=== PATIENT | male | born 2000 | race African-American/Black ===

== ENCOUNTER 2021-02-22 00:42 | Emergency (ER) | payer SELFPAY ==
[2021-02-22 00:46] VITALS: BP 137/85; PULSE 91; RESP 16; TEMP 36.1; O2SAT 100
--- NOTE | 2021-02-22 00:58 | ED.GENADULT ---
HPI - General Adult General Chief complaint: Alcohol Stated complaint: I got alcohol poisoning. Time Seen by Provider: 02/22/21 00:44 Source: RN notes reviewed History of Present Illness HPI narrative: Patient presents to emergency department from home for nausea vomiting. Patient states that last night he was drinking a large amount of alcohol he states he woke up this morning with nausea vomiting and has been vomiting throughout the day today. States he been unable to keep anything down. He states is associated with abdominal cramping throughout the abdomen he denies any fevers or chills, chest pain, shortness of breath or any other symptoms Related Data Allergies Allergy/AdvReac Type Severity Reaction Status Date / Time No Known Allergies Allergy Verified 02/22/21 01:19 Review of Systems Review of Systems: Gen.: Denies fevers or chills ENT: Denies congestion Respiratory: Denies shortness of breath or cough CV: Denies chest pain or palpitations GI: See HPI Musculoskeletal: Denies back pain or muscle pain Neuro: Denies numbness, tingling, weakness or focal weakness Skin: Denies rash Except as documented, all other systems reviewed and negative [facility] Past Medical History Medical History (Updated 02/22/21 @ 02:53 by Armond Yeager DO) Patient denies significant medical history Social History Social History (Updated 02/22/21 @ 00:59 by Armond Yeager DO) Smoking status: Current every day smoker Exam Narrative: APPEARANCE: No acute distress, nontoxic, resting in bed HEENT: Normocephalic, atraumatic, oral mucosa dry RESPIRATORY: No respiratory distress, clear to auscultation bilaterally with no rhonchi wheezing or rales CARDIOVASCULAR: RRR s murmur ABDOMINAL: Soft nondistended diffusely tender palpation no rebound or guarding MUSCULOSKELETAl: Moves all extremities. No clubbing, cyanosis or edema. NEURO: Awake and alert. Following commands, speech normal, no focal deficits SKIN:: Warm, dry. Normal Color PSYCHIATRIC: Normal affect/mood Course Course Emergency Course: Patient given 2 L IV fluid in the ED states he is feeling much better. Patient able to eat and drink in ED with no emesis Patient states that they are feeling much better at this time. States abdominal pain has resolved. Repeat abdominal exam shows the patient's abdomen to be soft and nontender. Discussed with patient results of workup and diagnosis. Discussed need for follow-up with primary care physician, reasons to return to the emergency department in proper use of medication. Patient understands and agrees to current treatment plan Vital Signs Vital signs: Vital Signs Temperature 97.0 F L 02/22/21 00:46 Pulse Rate 91 02/22/21 00:46 Respiratory Rate 16 02/22/21 00:46 Blood Pressure 137/85 02/22/21 00:46 Pulse Oximetry 100 02/22/21 00:46 Temperature 97.1 F L 02/22/21 02:29 Pulse Rate 67 02/22/21 02:29 Respiratory Rate 18 02/22/21 02:29 Blood Pressure 137/85 02/22/21 00:46 Pulse Oximetry 99 02/22/21 02:29 Medical Decision Making MDM Narrative Medical decision making narrative: Patient's abdomen is soft without significant pain or signs of surgical abdomen on serial exams. Lab and x-ray evaluations are reviewed and patient is felt to be a reasonable candidate for outpatient management. Patient was instructed as to limitations of x-ray and laboratory evaluation and encouraged to return to ED or primary physician for repeat exam in 12 hours if continued or worsening pain Vital Signs Vital Signs: Vital Signs Temperature 97.0 F L 02/22/21 00:46 Pulse Rate 91 02/22/21 00:46 Respiratory Rate 16 02/22/21 00:46 Blood Pressure 137/85 02/22/21 00:46 Pulse Oximetry 100 02/22/21 00:46 Temperature 97.1 F L 02/22/21 02:29 Pulse Rate 67 02/22/21 02:29 Respiratory Rate 18 02/22/21 02:29 Blood Pressure 137/85 02/22/21 00:46 Pulse Oximetry 99 02/22/21 02:29 Lab Data Result d
[2021-02-22 01:16] LABS: Basophils Percent Auto 0.1 % (0.2-1.2); Hemoglobin 14.1 g/dL (14.0-18.0); Immature Granulocyte Absolute 0.05 K/mm3 (0.00-0.031); Immature Granulocyte Percent A 0.3 % (0-0.5); Lymphocytes Absolute Auto 1.15 K/mm3 (0.9-3.2); Lymphocytes Percent Auto 7.4 % (18.3-44.2); Mean Corpuscular Hemoglobin 25.3 pg (26-34); Mean Corpuscular Volume 78.9 fl (80-100); Mean Platelet Volume 11.1 fl (7.4-10.4); Monocytes Absolute Auto 0.7 K/mm3 (0.1-0.6); Monocytes Percent Auto 4.7 % (2.6-8.5); Neutrophils Absolute Auto 13.6 K/mm3 (1.3-6.7); Neutrophils Percent Auto 87.5 % (45.5-73.1); Platelet Count Result 268 k/mm3 (150-375); Red Blood Count 5.58 M/mm3 (4.6-6.20); Red Cell Distribution Width 15.3 % (11.5-14.5); White Blood Count 15.6 K/mm3 (4.5-10.0)
[2021-02-22] MEDS: ONDANSETRON INJ 4 MG/2 ML VIAL IV PUSH (01:19)
[2021-02-22] MEDS: FAMOTIDINE 20 MG/2 ML VIAL IV PUSH (01:19)
[2021-02-22] MEDS: SODIUM CHLORIDE 0.9% IV 1,000 ML 999 ML IV CONT ×2 (01:19)
[2021-02-22 01:26] LABS: Add Urine Microscopic? YES; Appearance Urine Clear (Clear); Bilirubin Urine Negative (Negative); Blood Urine Negative (Negative); Color Urine Yellow (Yellow); Glucose Urine UA Negative (Negative); Ketones Urine 2+ mg/dL (Negative); Leukocyte Esterase Ur Negative LEU/UL (Negative); Mucus Urine Rare /lpf; Nitrate Urine Negative (Negative); Protein Urine 2+ mg/dL (Negative); RBC Urine 0-2 /hpf (0-2); Squamous Epithelial Cell Urine Rare /hpf (Few); Urobilinogen Urine Negative mg/dL (<2.0); WBC Urine 0-3 /hpf
[2021-02-22 01:31] LABS: Specific Grav Ur 1.033 (1.001-1.035)
[2021-02-22 01:33] LABS: Albumin Level 5.4 g/dL (3.7-5.6); Alkaline Phosphatase 119 U/L (58-237); Anion Gap 19 mmol/L (8-16); Aspartate Amino Transferase 74 U/L (17-59); Blood Urea Nitrogen 15 mg/dL (8-21); Calcium 9.9 mg/dL (8.9-10.7); Carbon Dioxide 22 mmol/L (22-30); Chloride 97 mmol/L (98-107); Estimated CRCL calculation 133 ml/min; Estimated Glomerular Filt Rate > 60; Glucose 145 mg/dL (65-110); Lipase 66 U/L (23-300); Potassium 3.9 mmol/L (3.4-5.0); Sodium 138 mmol/L (134-143)
[2021-02-22 01:37] LABS: Alanine Aminotransferase 43 U/L (4-50)
--- NOTE | 2021-02-22 01:51 | PC.NURSE ---
pt continues to rest on stretcher. no active vomiting since arrival. no s/s of distress.
--- NOTE | 2021-02-22 02:26 | PC.NURSE ---
Pt given ice chips for po challenge. no vomiting. no s/s of distress.
[2021-02-22 02:29] VITALS: PULSE 67; RESP 18; TEMP 36.2; O2SAT 99
== END 2021-02-22 03:05 | disposition home or self-care (01) ==
PROVIDERS: Emergency Provider Emergency Medicine
DX: R11.2 Nausea with vomiting, unspecified (principal); R10.9 Unspecified abdominal pain; F17.200 Nicotine dependence, unspecified, uncomplicated
CPT/HCPCS: 36415; 80053; 81001; 83690; 85025; 96361; 96374; 96375; 99284; J2405; J7030